=== PATIENT | female | born 1985 | race African-American/Black ===

== ENCOUNTER 2018-05-19 14:00 | Emergency (ER) | payer OTHER ==
[~2018-05-19] VITALS: Ht 167.6 cm; Wt 56.7 kg
[2018-05-19 14:30] VITALS: BP 137/84
[2018-05-19] MEDS ORDERED: ACETAMINOPHEN 650 MG/20.3 ML UDC PO ONE (15:00)
[2018-05-19] MEDS ORDERED: ACETAMINOPHEN 325 MG TABLET ONE (15:26)
[2018-05-19] MEDS ORDERED: ACETAMINOPHEN 325 MG TABLET PO ONE (15:30)
== END 2018-05-19 16:00 | disposition home or self-care (01) ==
LOC: ER 14:05
DX: S29.012A Strain of muscle and tendon of back wall of thorax, initial encounter (principal); S20.219A Contusion of unspecified front wall of thorax, initial encounter; M62.830 Muscle spasm of back; V43.52XA Car driver injured in collision with other type car in traffic accident, initial encounter; Y93.89 Activity, other specified; Y92.410 Unspecified street and highway as the place of occurrence of the external cause; Y99.8 Other external cause status
CPT/HCPCS: 71111-TC; 72070-TC; 72100-TC; A4606; Z7610

== ENCOUNTER 2018-12-21 03:59 | Emergency (ER) | payer OTHER ==
[~2018-12-21] VITALS: Ht 162.6 cm; Wt 57.6 kg
--- NOTE | 2018-12-21 04:31 | NUR ---
BIB BF C/O "HAVING ABDOMINAL AND BACK PAIN FOR 1X DAY" -N/V -SOB. AOX4. AMBULATORY W,STEADY GAIT. -ACUTE DISTRESS
[2018-12-21 04:58] LABS: APPEARANCE,URINE CLEAR (CLEAR); BILIRUBIN,URINE NEGATIVE (NEGATIVE); BLOOD, URINE NEGATIVE Ery/uL (NEGATIVE); COLOR,URINE YELLOW (YELLOW); KETONES,URINE NEGATIVE (NEGATIVE); LEUKOCYTE ESTERASE ,URINE NEGATIVE (NEGATIVE); NITRITE, URINE NEGATIVE (NEGATIVE); PROTEIN,URINE NEGATIVE (NEGATIVE); UGLUCOSE NEGATIVE (NEGATIVE); UROBILINOGEN,URINE 0.2 EU/dL (0.2)
--- NOTE | 2018-12-21 05:48 | NUR ---
Female harpooner accompanied female patient for DR. FARIA.
[2018-12-21 06:05] VITALS: BP 126/81
--- NOTE | 2018-12-21 06:06 | NUR ---
Patient is resting comfortably in bed with eyes closed. Easily aroused. VSS
== END 2018-12-21 06:30 | disposition home or self-care (01) ==
LOC: ER 03:59
DX: R10.2 Pelvic and perineal pain (principal); Z88.6 Allergy status to analgesic agent
CPT/HCPCS: 76856-TC; 81000-TC; 84703-TC

== ENCOUNTER 2019-02-19 17:57 | Emergency (ER) | payer OTHER ==
[~2019-02-19] VITALS: Ht 162.6 cm; Wt 59.9 kg
--- NOTE | 2019-02-19 18:40 | NUR ---
PATIENT ARRIVED AMBULATORY. WITH C/O ABDOMINAL PAIN X 2 DAYS. ALERT AND ORITENTED X 4, NO ACUTE DISTRESS
--- NOTE | 2019-02-19 18:45 | NUR ---
URINE COLLECTED AND SEND TO LAB
--- NOTE | 2019-02-19 18:50 | NUR ---
MARSII DEGRASSE AT BEDSIDE
[2019-02-19 18:59] LABS: APPEARANCE,URINE Clear (CLEAR); BILIRUBIN,URINE Negative (NEGATIVE); BLOOD, URINE Negative Ery/uL (NEGATIVE); COLOR,URINE Yellow (YELLOW); KETONES,URINE 15 (NEGATIVE); LEUKOCYTE ESTERASE ,URINE Negative (NEGATIVE); NITRITE, URINE Negative (NEGATIVE); PROTEIN,URINE 30 mg/dl (NEGATIVE); UGLUCOSE Negative (NEGATIVE)
[2019-02-19] MEDS ORDERED: IV NS 0.9% 1,000 ML BAG IV ONE (19:00)
[2019-02-19 19:05] LABS: BASOPHILS # (AUTO) 0.1 /CMM (0.0-0.2); BASOPHILS % (AUTO) 1.1 % (0.0-2.0); EOSINOPHILS % (AUTO) 5.2 % (0.0-6.0); HEMATOCRIT 40 % (33-45); HEMOGLOBIN 13.4 g/dL (11.5-14.8); LYMPHOCYTES # (AUTO) 1.6 /CMM (0.8-4.8); LYMPHOCYTES % (AUTO) 33.2 % (20.0-44.0); MEAN CORPUSCULAR HGB CONC 33 g/dl (31.0-36.0); MEAN CORPUSCULAR VOLUME 92 fL (82-100); MONOCYTES # (AUTO) 0.5 /CMM (0.1-1.30); NEUTROPHILS # (AUTO) 2.4 /CMM (1.8-8.9); NEUTROPHILS % (AUTO) 49.5 % (43.0-81.0); PLATELET COUNT (AUTO) 232 /CMM (150-450); RED BLOOD CELL COUNT(AUTO) 4.35 MIL/uL (4.0-5.2); WHITE BLOOD COUNT (AUTO) 4.8 K/uL (4.3-11.0)
[2019-02-19 19:14] LABS: CALCIUM, SERUM 8.8 mg/dL (8.5-10.1); CREATININE 0.8 mg/dL (0.6-1.3); POTASSIUM 4.4 mmol/L (3.5-5.1)
[2019-02-19 19:19] LABS: ALBUMIN 3.8 g/dL (3.4-5.0); BILIRUBIN,DIRECT 0.1 mg/dL (0.0-0.2); BILIRUBIN,TOTAL 0.4 mg/dL (0.2-1.0); TOTAL PROTEIN, SERUM 7.6 g/dL (6.4-8.2)
[2019-02-19] MEDS ORDERED: IOHEXOL-300 100 ML VIAL IV ONE (19:23)
[2019-02-19] MEDS ORDERED: IV NS 0.9% 250 ML IV ONE (19:23)
[2019-02-19] MEDS ORDERED: CT SWABBABLE VALVE TRANS SET 1 EA INFUS.SET MC ONE (19:23)
--- NOTE | 2019-02-19 20:24 | NUR ---
IV removed. Catheter intact and site benign. Pressure and 4x4 applied to site. No bleeding noted. Patient discharged to home in stable condition. Written and verbal after care instructions given. Patient verbalizes understanding of instruction.
[2019-02-19 20:25] VITALS: BP 127/64
== END 2019-02-19 20:28 | disposition home or self-care (01) ==
LOC: ER 17:57
DX: K59.00 Constipation, unspecified (principal); Z88.6 Allergy status to analgesic agent
CPT/HCPCS: 36415; 74177; 80048; 80076; 81001; 83690; 84703; 85025; 85730; 99284; J7030; J7050; Q9967; 81000-TC